=== PATIENT | female | born 1975 | race Caucasian/White ===

== ENCOUNTER 2017-11-09 12:45 | Emergency (ER) | payer MEDICARE ==
[~2017-11-09] VITALS: Ht 160 cm; Wt 89.8 kg
[2017-11-09 14:30] VITALS: Ht 160 cm; Wt 89.8 kg
[2017-11-09] MEDS ORDERED: SYNTHROID75 MCG PO (14:34)
[2017-11-09] MEDS ORDERED: VITAMIN D2000 UNIT PO (14:34)
[2017-11-09] MEDS ORDERED: LIPITOR20 MG PO (14:35)
[2017-11-09] MEDS ORDERED: VALIUM 2 MG TAB2 MG PO (19:02)
[2017-11-09] MEDS ORDERED: EC-NAPROSYN500 MG PO (19:02)
[2017-11-10 03:01] VITALS: BP 123/79
== END 2017-11-09 19:24 | disposition home or self-care (01) ==
LOC: D.ER 12:45
DX: S16.1XXA Strain of muscle, fascia and tendon at neck level, initial encounter (principal); V43.52XA Car driver injured in collision with other type car in traffic accident, initial encounter; Y93.89 Activity, other specified; Y92.410 Unspecified street and highway as the place of occurrence of the external cause; M62.838 Other muscle spasm; R51 Headache; E07.9 Disorder of thyroid, unspecified; K21.9 Gastro-esophageal reflux disease without esophagitis